=== PATIENT | male | born 1930 | race Caucasian/White ===

== ENCOUNTER 2019-12-07 12:23 | Emergency (ER) | payer MEDICARE, BC ==
[~2019-12-07] VITALS: Ht 172.7 cm; Wt 77.1 kg
--- NOTE | 2019-12-07 13:51 | Emergency Department Note ---
History of Present Illnes History of Present Illness Chief Complaint: Abdominal Complaints History of Present Illness This is a 89 year old male STATES HE HAD A BARIUM ENEMA ON MON BUT DOESN'T FEEL LIKE IT ALL CAME OUT STILL FEELS FULL C/O INTERMITTENT LOWER CRAMPY ABD PAIN. Historian: Patient Arrival Mode: Car Broomcorn Seeder Required: No Onset (how long ago): day(s) (3) Location: LOWER ABDOMEN Quality: CRAMPING Radiation: Reports non-radiation Severity: moderate Onset quality: gradual Timing of current episode: intermittent Progression: waxing and waning Chronicity: new Context: Denies recent illness Relieving factors: none Exacerbating factors: none Associated symptoms: Reports denies other symptoms Treatments prior to arrival: none Past Medical/Family History Physician Review I have reviewed the patient's past medical and family history. Any updates have been documented here. Past Medical History Recent Fever: No Clinical Suspicion of Infectio: No New/Unexplained Change in Ment: No Past Medical History: Hypertension Other Medical History: PROSTATE CA Other Surgery: THUMB JOINT REPLACEMENT Social History Smoking Cessation: Never Smoker Counseling Performed: No Alcohol Use: None Any Illegal Drug Use: No Physically hurt or threatened: No Other Any Pre-Existing Lines (PICC,: No Review of Systems Review of Systems Constitutional: Reports no symptoms EENTM: Reports no symptoms Cardiovascular: Reports no symptoms Respiratory: Reports no symptoms Gastrointestinal: Reports as per HPI Genitourinary: Reports no symptoms Musculoskeletal: Reports no symptoms Integumentary: Reports no symptoms Neurological: Reports no symptoms Psychological: Reports no symptoms Endocrine: Reports no symptoms Hematological/Lymphatic: Reports no symptoms Physical Exam Related Data Allergies: Coded Allergies: No Known Allergies (Unverified , 12/07/19) Triage Vital Signs Vital Signs Date Time Temp Pulse Resp B/P (MAP) Pulse Ox O2 Delivery O2 Flow Rate FiO2 12/07/19 12:30 98.1 80 18 163/87 98 Room Air Vital signs reviewed: Yes Physical Exam CONSTITUTIONAL Constitutional: Present well-developed, Present well-nourished HENT HENT: Present normocephalic, Present atraumatic, Present oropharynx clear/moist, Present nose normal HENT L/R: Present left ext ear normal, Present right ext ear normal EYES Eyes: Reports PERRL, Reports conjunctivae normal NECK Neck: Present ROM normal PULMONARY Pulmonary: Present effort normal, Present breath sounds normal CARDIOVASCULAR Cardiovascular: Present regular rhythm, Present heart sounds normal, Present capillary refill normal, Present normal rate GASTROINTESTINAL Abdominal: Present soft, Present nontender, Present bowel sounds normal; Absent distension, Absent tender GENITOURINARY Genitourinary: Present exam deferred SKIN Skin: Present warm, Present dry MUSCULOSKELETAL Musculoskeletal: Present ROM normal NEUROLOGICAL Neurological: Present alert, Present oriented x 3, Present no gross motor or sensory deficits PSYCHOLOGICAL Psychological: Present mood/affect normal, Present judgement normal Results Imaging Imaging results reviewed: Yes Assessment & Plan Medical Decision Making MDM CHECK ABD SERIES - R/O OBSTRUCTION BUT CLINICALLY HE SEEMS LIKE JUST MILD CONSTIPATION/RETAINED BARIUM Reassessment Reassessment D/W DR SEARS - AGREES PT CAN GO HOME, RECOMMENDS MIRALAX, F/U MONDAY PRN Assessment & Plan Final Impression: (1) Acute constipation Depart Disposition: HOME, SELF-CARE Last Vital Signs Date Time Temp Pulse Resp B/P (MAP) Pulse Ox O2 Delivery O2 Flow Rate FiO2 12/07/19 12:30 98.1 80 18 163/87 98 Room Air MARJORIE ROBERTSON MD Dec 07, 2019 13:51
--- NOTE | 2019-12-07 14:01 | Diagnostic Imaging Report ---
Exam: KUB - 3 views Clinical History: Constipation. Comparison: None. Findings: Retained contrast throughout the colon. Moderate amount of stool in the proximal colon. Nonobstructive bowel gas pattern. No evidence of free intraperitoneal air. No acute bony abnormality. 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 Fiducial markers in the prostate. Postsurgical spring like device in the left pelvis, possibly from prior hernia repair. Impression: Retained contrast throughout the colon. Moderate amount of stool in the proximal colon. Signed by: Dr. Darien Blanco MD on 12/07/2019 1:58 PM
== END 2019-12-07 14:00 | disposition home or self-care (01) ==
LOC: ER 12:30
DX: K59.00 Constipation, unspecified (principal); I10 Essential (primary) hypertension; Z85.46 Personal history of malignant neoplasm of prostate
CPT/HCPCS: 74019; 99283